=== PATIENT | female | born 2000 | race Caucasian/White ===

== ENCOUNTER 2022-01-19 16:02 | Emergency (ER) | payer BC, SELFPAY ==
[2022-01-19 16:08] VITALS: BP 121/70; PULSE 121; RESP 12; TEMP 36.6; O2SAT 97
--- NOTE | 2022-01-19 16:18 | ED.ABDPAIN ---
HPI - Abdominal Pain General Chief Complaint: Abdominal Pain Stated Complaint: abd issues/vision changes Time Seen by Provider: 01/19/22 16:20 Source: patient, RN notes reviewed and old records reviewed Mode of arrival: ambulatory Limitations: no limitations History of Present Illness HPI narrative: 21 year old female who presents to [facility] care with complaints of having nausea and vomiting since yesterday X1 and having watery diarrhea stools X8 with last episode one hour ago. Patient states that she ate a breakfast sandwich this morning and it made her feel worse and then had more episodes of diarrhea. Patient states some nausea but no emesis since yesterday. Patient also reports that she had an episode where she had geometric lines in her vision for about 20 minutes with resolution of symptom, denies any dizziness heart rate is elevated at 121. Patient reports that she has had COVID immunizations and also COVID in December of 2020, no flu shot taken. MD elicited complaint: abdominal pain (cramping ) Onset (ago): week(s) (since yesterday) Pain Consistency: intermittent (crampy) Location: other (mid abdominal) Severity: mild Quality: cramping Migration to: no migration Associated symptoms: nausea, vomiting, diarrhea and chills Treatments prior to arrival: NSAIDs (Ibuprofen X1) Related Data Hx Last Menstrual Period: November of 2021 is irregular Patient : No Home Medications Medication Instructions Recorded Confirmed No Home Medications 01/19/22 01/19/22 Allergies Allergy/AdvReac Type Severity Reaction Status Date / Time No Known Allergies Allergy Verified 01/19/22 16:08 Review of Systems Review of Systems: CONSTITUTIONAL: unknown if fever, positive chills, or sweats. EYES: episode of now resolved visual changes,no redness, or discharge. ENT: Denies rhinorrhea, congestion, sore throat, or otalgia. CARDIOVASCULAR: Denies chest pain, palpitations, or edema. RESPIRATORY: Denies cough or dyspnea. GASTROINTESTINAL: Denies abdominal pain states mid abdominal cramping, positive nausea, vomiting, or diarrhea. GENITOURINARY: Denies dysuria or hematuria. SKIN: Denies rash or itching. MUSCULOSKELETAL: Denies back pain, joint pain, or myalgia. NEUROLOGIC: Denies headache, numbness, or weakness. PSYCHIATRIC: Positive anxiety or depression. All systems reviewed & are unremarkable except as noted in HPI and below PMFSH Past Medical History Medical History (Updated 01/19/22 @ 16:50 by Leidy Arroyo NP) Anxiety Surgical History Surgical History (Updated 01/19/22 @ 16:33 by Leidy Arroyo NP) No history of previous surgery Family History Family History (Updated 01/19/22 @ 16:33 by Leidy Arroyo NP) Grandparent Heart disease Social History Social History (Updated 01/19/22 @ 16:33 by Leidy Arroyo NP) Smoking status: Never smoker Alcohol intake: never Substance use: never Living arrangements: dorm student housing Gender identity (if verbalized by the patient): Female Comments At time of signature, agree with nursing past medical, surgical, social and family history. There is no relevant family history pertinent to the presenting complaint Exam Narrative: GENERAL: Well-appearing, well-nourished, obese and in no acute distress. HEAD: Normocephalic, atraumatic. EYES: PERRLA and EOMI. ENT: Nares red with clear rhinorrhea no epistaxis. Mucous membranes moist.TM's normal with good light reflex, throat red with no lesions or exudates, no tonsil swelling. NECK: Supple. no lymphadenopathy CHEST: Clear to auscultation. No respiratory distress. SaO2 97% on room air HEART: Regular rate and rhythm. No murmur heard. Normal peripheral pulses. ABDOMEN: Soft, nontender to palpation, nondistended, normal active bowel sounds. diarrhea stools EXTREMITIES: Normal range of motion. No edema. SKIN: Warm, dry, no rash. NEURO: No focal deficits. Alert and oriented x3. Course Course Level of Care: [place]
[2022-01-19] MEDS: ONDANSETRON HCL ODT 4 MG TABLET SUBLINGUAL (16:32)
== END 2022-01-19 16:55 | disposition home or self-care (01) ==
PROVIDERS: Emergency Provider Registered Nurse
DX: K52.9 Noninfective gastroenteritis and colitis, unspecified (principal); E86.0 Dehydration; Z86.16 Personal history of COVID-19
CPT/HCPCS: 87081; 87804; 87880; 99213; A9270; G0463